=== PATIENT | male | born 1935 | race Caucasian/White ===

== ENCOUNTER 2021-02-27 09:40 | Inpatient (IN) | payer OTHER ==
[2021-02-27 10:43] LABS: Absolute Lymphocytes (CBC) 0.5 K/uL (0.7-4.9); Basophils % 0.1 % (0-1.3); Hematocrit 52.7 % (39.6-49.0); Lymphocytes % 2.9 % (15.3-44.8); MPV 8.8 fL (7.6-11.3); RBC Red Blood Cell Count 5.72 M/uL (4.33-5.43)
[2021-02-27 10:44] LABS: Protime INR 1.14
[2021-02-27 11:14] LABS: ALT/SGPT 17 U/L (12-78); AST/SGOT 18 U/L (15-37); Albumin 3.7 g/dL (3.4-5.0); Alkaline Phosphatase 81 U/L (45-117); Amylase 32 U/L (25-115); BUN Blood Urea Nitrogen 16 mg/dL (7-18); Bicarbonate 23 mmol/L (21-32); Bilirubin Direct 0.2 mg/dL (0-0.2); Bilirubin Total 1.2 mg/dL (0.2-1.0); CKMB Creatine Kinase MB < 1.0 ng/mL (1.0-3.6); Creatine Phosphokinase 53 U/L (39-308); Glucose Level 205 mg/dL (74-106); Lipase 45 U/L (73-393); Protein, Total 8.7 g/dL (6.4-8.2); Sodium Level 133 mmol/L (136-145); Troponin (Emerg Dept Use Only) < 0.02 ng/mL (0.0-0.045)
[2021-02-27] MEDS ORDERED: NA CHLORIDE 0.9% 500 ML ONE (11:28)
[2021-02-27] MEDS ORDERED: CEFTRIAXONE/SWI 1gm 1 GM/10 ML SYR ONE (11:56)
[2021-02-27] MEDS ORDERED: NA CHLORIDE 0.9% 100 ML ONE (11:56)
[2021-02-27 12:04] LABS: Blood Morphology Comment NOT SEEN (NOT SEEN); Platelet Estimate ADEQ; White Blood Cell Scan OK (OK)
--- NOTE | 2021-02-27 12:12 | RAD REPORT ---
EXAM DESCRIPTION: RAD - Chest Single View - 02/27/2021 10:59 am CLINICAL HISTORY: Weakness COMPARISON: Two view chest August 2011 TECHNIQUE: AP portable chest image was obtained 02/27/2021 10:59 am . FINDINGS: Fibrotic lung changes are present. No peripheral mass or consolidation confirmed. Calcifie d pleural plaques or small calcified parenchymal nodules seen. No failure or volume overload. Heart a nd vasculature are normal. No measurable pleural effusion and no pneumothorax. No acute bony abnormal ity seen. No acute aortic findings suspected. IMPRESSION: Chronic interstitial lung disease with fibrotic pattern progressive from 2011 No acute finding confirmed.
[2021-02-27 12:36] LABS: Urine Blood 3+ (Negative); Urine Glucose Negative (Negative); Urine Protein 3+ (Negative); Urine Specific Gravity 1.025 (1.005-1.030); Urine pH 5.5 (5.0-7.0)
[2021-02-27 13:19] LABS: Urine Bacteria 20-50 /HPF (NONE SEEN)
[2021-02-27 13:20] LABS: Urine Amorphous Sediment 2+ /HPF (NONE SEEN)
--- NOTE | 2021-02-27 13:32 | RAD REPORT ---
EXAM DESCRIPTION: CT - Chest For Pe Angio - 02/27/2021 1:14 pm CLINICAL HISTORY: COUGH COMPARISON: CT ABD PELVIS W CONTRAST dated 11/13/2009 TECHNIQUE: Dynamically enhanced 3 mm thick images of the chest were obtained during administration o f approximately 150mL Isovue 370 IV contrast. Coronal and oblique MIP reconstruction images were gene rated and reviewed. Exam utilizes a protocol to evaluate the pulmonary arterial tree. All CT scans are performed using dose optimization technique as appropriate and may include automated exposure control or mA/KV adjustment according to patient size. FINDINGS: No pulmonary emboli are identified. The aorta as imaged shows no acute or suspicious finding. No pericardial thickening or effusion. Prominent emphysema changes are present in the lung pena is a baseline. Patient has calcified pleur al plaquing. Focal consolidation is present in the posterior gutter on the left. No cavitation or und erlying mass. A few air bronchograms are present. Associated bronchi show wall thickening. Trace amou nt of airspace opacification seen in the superior segment left lower lobe. No pleural effusion or ple ural thickening. In the right lower lobe abutting the lateral pleura there is a 3.4 x 1.1 centimeter area of pleural t hickening and spiculated subpleural parenchyma. Review of the 2010 study shows this process to be pre sent but smaller in size. In all likelihood, this is progressive fibrotic process. Malignancy would b e expected have progressed substantially more over an 11 year interval. Small nonspecific mediastinal and hilar reactive type lymph nodes are present. No new bulky lymphaden opathy. No chest wall masses or abnormal axillary lymphadenopathy. IMPRESSION: No pulmonary emboli identified. Posterior gutter left lower lobe moderate-sized pneumonia.This pattern is more typically associated w ith bacterial pneumonia rather than COVID-19 or other viral process. The 3.4 x 1.1 cm sessile and spiculated soft tissue mass abutting the pleura in the lateral right low er lobe was present but has enlarged since 2010. Focal scarring would be favored given the relatively small interval exchange mechanic a decade of time. Ongoing monitoring can be used for surveillance of this finding. Underlying prominent emphysema.
[2021-02-27] MEDS ORDERED: ACETAMINOPHEN 500 MG TAB PO PRN (13:58)
[2021-02-27] MEDS ORDERED: ONDANSETRON 4 MG/2 ML VIAL IV PRN (13:58)
--- NOTE | 2021-02-27 14:04 | ER ---
Nurse's Notes [facility] Name: Jose Hudson Sr Age: 85 yrs Sex: Male : 1935 Arrival Date: 02/27/2021 Time: 09:43 Bed 19 Private MD: Pina Stevenson F Diagnosis: Other pneumonia, unspecified organism;Cystitis, unspecified with hematuria;Facial weakness Presentation: 02/27 09:46 Chief complaint: Pt's daughter report generalized weakness and AMS that began aa5 yesterday. Pt's daughter states "he is incoherent and he urinated on himself and he is so weak that he needs a lot of support just to get up". Pt currently A\\T\\O x 4. Coronavirus screen: fatigue. Ebola Screen: Patient negative for fever greater than or equal to 101.5 degrees Fahrenheit, and additional compatible Ebola Virus Disease symptoms. Onset of symptoms was February 2021. 09:46 Method Of Arrival: Wheelchair aa5 09:46 Initial Sepsis Screen: Does the patient meet any 2 criteria? HR > 90 bpm. Does the aa5 patient have a suspected source of infection? No. Patient's initial sepsis screen is negative. Risk Assessment: Do you want to hurt yourself or someone else? Patient reports no desire to harm self or others. 09:46 Acuity: RON 2 aa5 Triage Assessment: 09:50 General: Appears in no apparent distress. comfortable, Behavior is calm, cooperative, bp appropriate for age. Pain: Denies pain. EENT: No deficits noted. Neuro: Level of Consciousness is awake, alert, obeys commands, Oriented to Appropriate for age Reports weakness generalized. Cardiovascular: No deficits noted. Respiratory: No deficits noted. GI: No signs and/or symptoms were reported involving the gastrointestinal system. : No signs and/or symptoms were reported regarding the genitourinary system. Derm: No deficits noted. Musculoskeletal: No deficits noted. Historical: - Allergies: 09:49 Demerol (hallucinations); aa5 - Home Meds: 09:49 None [Active]; aa5 - PMHx: 09:49 None; aa5 - Immunization history:: Client reports receiving the 1st dose of the Covid vaccine. - Social history:: Smoking status: Patient reports the use of cigarette tobacco products, smokes one pack cigarettes per day. Screenin:50 Abuse screen: Denies threats or abuse. Denies injuries from another. Nutritional bp screening: No deficits noted. Tuberculosis screening: No symptoms or risk factors identified. Fall Risk None identified. Assessment: 09:50 General: SEE TRIAGE NOTE. bp 10:52 Reassessment: No changes from previously documented assessment. Patient and/or family bp updated on plan of care and expected duration. Pain level reassessed. CXR COMPLETED. UOP PENDING. 12:38 Reassessment: No changes from previously documented assessment. Patient and/or family bp updated on plan of care and expected duration. Pain level reassessed. PT STRAIGHT CATH FOR UOP, TOLERATED WELL. CT CHEST PENDING. 13:22 Reassessment: No changes from previously documented assessment. Patient and/or family bp updated on plan of care and expected duration. Pain level reassessed. PT RETURNED FROM CT. 15:40 Reassessment: No changes from previously documented assessment. Patient and/or family bp updated on plan of care and expected duration. Pain level reassessed. ADMIT INITIATED FOR PNEUMONIA AND CYSTITIS. Vital Signs: 09:46 BP 93 / 60; Pulse 107; Resp 18 S; Temp 98.6(O); Pulse Ox 87% on R/A; Weight 77.11 kg aa5 (R); Height 5 ft. 10 in. (177.80 cm) (R); 09:52 Pulse Ox 2 lpm NC; aa5 10:49 BP 108 / 67; Pulse 92; Resp 26; Temp 100.1; Pulse Ox 94% ; bp 11:51 BP 100 / 65; Pulse 81; Resp 23; Pulse Ox 98% ; bp 12:38 BP 127 / 67; Pulse 93; Resp 20; Pulse Ox 94% ; bp 13:23 BP 145 / 66; Pulse 105; Resp 20; Pulse Ox 100% ; bp 14:30 BP 149 / 94; Pulse 97; Resp 25; Pulse Ox 95% ; bp 15:30 BP 138 / 84; Pulse 100; Resp 22; Pulse Ox 95% ; bp 09:46 Body Mass Index 24.39 (77.11 kg, 177.80 cm) aa5 ED Course: 09:43 Patient arrived in ED. as 09:43 Pina Stevenson MD is Private Physician. as 09:45 Steven Tavarez MD is Attending Physician. kdr 09:46 Arm band placed on. aa5 09:48 Triage completed. aa5 09:50 Patient has correct armband on for positive identification. Bed in low position. Call bp light in reach. Side rails up X2. Adult w/ patient. 09:57 Ted Killian, RN is Primary Nurse. bp 10:20 Initial lab(s) drawn, by la, sent to lab. Inserted saline lock: 20 gauge in right kj1 antecubital area, using aseptic technique. Blood collected. 10:23 Inserted saline lock: 20 gauge in right antecubital area, using aseptic technique. bp Blood collected. 10:30 EKG done, by calibration laboratory technician. reviewed by Steven Tavarez MD. kj1 10:44 COVID-19 : Document "Date of Symptom Onset" if Symptomatic. Sent. bp 10:59 Chest Single View XRAY In Process Unspecified. EDMS 12:30 Straight cath inserted, using sterile technique, 16 Fr. Specimen obtained. bp 13:13 CT Chest For PE Angio In Process Unspecified. EDMS 14:03 Pina Stevenson MD is Hospitalizing Provider. kdr 19:03 No provider procedures requiring assistance completed. Patient admitted, IV remains in bp place. Administered Medications: 10:45 Drug: NS 0.9% 500 ml Route: IV; Rate: bolus; Site: right antecubital; bp 19:03 Follow up: IV Status: Completed infusion; IV Intake: 500ml bp 11:30 Drug: Rocephin - (cefTRIAXone) 1 grams Route: IVPB; Infused Over: 30 mins; Site: right bp antecubital; 19:03 Follow up: IV Status: Completed infusion; IV Intake: 50ml bp Intake: 19:03 IV: 50ml; Total: 50ml. bp 19:03 IV: 500ml; Total: 550ml. bp Outcome: 14:04 Decision to Hospitalize by Provider. kdr 14:30 Admitted to ER Hold. [facility]. bp 14:30 Condition: stable 14:30 Instructed on the need for admit. 20:25 Patient left the ED. kc4 Signatures: Dispatcher [employer] EDMS Steven Tavarez MD MD kdr Haily Donnelly Audri, RN RN [facility] Ted Killian, ROSENDO RN bp John Winndis kj1 Montserrat Whaley kc4 Corrections: (The following items were deleted from the chart) 09:52 09:46 Chief complaint: Pt's daughter report generalized weakness and AMS that began aa5 yesterday. Pt's daughter states "he is incoherent and he urinated on himself and he is so weak that he needs a lot of support just to get up". aa5 09:53 09:46 BP 93 / 60; Pulse 107bpm; Resp 18bpm; Spontaneous; Pulse Ox 87% RA; 77.11 kg aa5 Reported; Height 5 ft. 10 in. Reported; BMI: 24.3; aa5 09:57 09:46 Acuity: RON 3 aa5 aa5 09:58 09:46 Coronavirus screen: At this time, the client does not indicate any symptoms aa5 associated with coronavirus-19. aa5 10:36 10:36 EKG done, by calibration laboratory technician. reviewed by Steven Tavarez MD kj1 kj1 19:02 10:49 BP 108 / 67; Pulse 92bpm; Resp 26bpm; Pulse Ox 94%; bp bp
--- NOTE | 2021-02-27 14:05 | EDPHYS ---
Physician Documentation [facility] Name: Jose Hudson Sr Age: 85 yrs Sex: Male : 1935 Arrival Date: 02/27/2021 Time: 09:43 Bed 19 Private MD: Pina Stevenson F ED Physician Steven Tavarez HPI: 02/27 10:34 This 85 yrs old Male presents to ER via Wheelchair with complaints of kdr Weakness. 10:34 The patient presents to the emergency department with weakness of the entire body, kdr generalized weakness, Disorientation. Onset: The symptoms/episode began/occurred this morning, today. Context: occurred at home, occurred while the patient was at rest, The daughter states that last evening she believes the patient got out of his bed to go to the bathroom and may have urinated on the floor on the way. This morning he was unable to get out of bed without help. Normally the patient is able to care for himself make his own breakfast and take care of things and does not physically limited. Associated signs and symptoms: Pertinent positives: altered mental status, weakness, Possible incontinence. Severity of symptoms: At their worst the symptoms were moderate severe today, in the emergency department the symptoms have improved mildly. Patient's baseline: Neuro: alert and fully oriented, Motor: no deficits, Ambulation: walks without assistance, Speech: normal, normal for age. Current symptoms: Mild weakness. The patient has not experienced similar symptoms in the past. The patient has not recently seen a physician. Historical: - Allergies: 09:49 Demerol (hallucinations); aa5 - Home Meds: 09:49 None [Active]; aa5 - PMHx: 09:49 None; aa5 - Immunization history:: Client reports receiving the 1st dose of the Covid vaccine. - Social history:: Smoking status: Patient reports the use of cigarette tobacco products, smokes one pack cigarettes per day. ROS: 10:34 Constitutional: Negative for fever, chills, and weight loss, Eyes: Negative for injury, kdr pain, redness, and discharge, ENT: Negative for injury, pain, and discharge, Neck: Negative for injury, pain, and swelling, Cardiovascular: Negative for chest pain, palpitations, and edema, Respiratory: Negative for shortness of breath, cough, wheezing, and pleuritic chest pain, Abdomen/GI: Negative for abdominal pain, nausea, vomiting, diarrhea, and constipation, Back: Negative for injury and pain, : Negative for injury, bleeding, discharge, and swelling, MS/Extremity: Negative for injury and deformity, Skin: Negative for injury, rash, and discoloration, Psych: Negative for depression, anxiety, suicide ideation, homicidal ideation, and hallucinations, Allergy/Immunology: Negative for hives, rash, and allergies, Endocrine: Negative for neck swelling, polydipsia, polyuria, polyphagia, and marked weight changes, Hematologic/Lymphatic: Negative for swollen nodes, abnormal bleeding, and unusual bruising. 10:34 Neuro: Positive for altered mental status, weakness, Mild confusion. Exam: 10:34 Constitutional: This is a well developed, well nourished patient who is awake, alert, kdr and in no acute distress. Head/Face: Normocephalic, atraumatic. Eyes: Pupils equal round and reactive to light, extra-ocular motions intact. Lids and lashes normal. Conjunctiva and sclera are non-icteric and not injected. Cornea within normal limits. Periorbital areas with no swelling, redness, or edema. Neck: Trachea midline, no thyromegaly or masses palpated, and no cervical lymphadenopathy. Supple, full range of motion without nuchal rigidity, or vertebral point tenderness. No Meningismus. Chest/axilla: Normal chest wall appearance and motion. Nontender with no deformity. No lesions are appreciated. Cardiovascular: Regular rate and rhythm with a normal S1 and S2. No gallops, murmurs, or rubs. Normal PMI, no JVD. No pulse deficits. Respiratory: Lungs have equal breath sounds bilaterally, clear to auscultation and percussion. No rales, rhonchi or wheezes noted. No increased work of breathing, no retractions or nasal flaring. Abdomen/GI: Soft, non-tender, with normal bowel sounds. No distension or tympany. No guarding or rebound. No evidence of tenderness throughout. Back: No spinal tenderness. No costovertebral tenderness. Full range of motion. Skin: Warm, dry with normal turgor. Normal color with no rashes, no lesions, and no evidence of cellulitis. MS/ Extremity: Pulses equal, no cyanosis. Neurovascular intact. Full, normal range of motion. Neuro: Awake and alert, GCS 15, oriented to person, place, time, and situation. Cranial nerves II-XII grossly intact. Motor strength 5/5 in all extremities. Sensory grossly intact. Cerebellar exam normal. Psych: Awake, alert, with orientation to person, place and time. Behavior, mood, and affect are within normal limits. 10:34 ECG was reviewed by the Attending Physician. kdr Vital Signs: 09:46 BP 93 / 60; Pulse 107; Resp 18 S; Temp 98.6(O); Pulse Ox 87% on R/A; Weight 77.11 kg aa5 (R); Height 5 ft. 10 in. (177.80 cm) (R); 09:52 Pulse Ox 2 lpm NC; aa5 10:49 BP 108 / 67; Pulse 92; Resp 26; Temp 100.1; Pulse Ox 94% ; bp 11:51 BP 100 / 65; Pulse 81; Resp 23; Pulse Ox 98% ; bp 12:38 BP 127 / 67; Pulse 93; Resp 20; Pulse Ox 94% ; bp 13:23 BP 145 / 66; Pulse 105; Resp 20; Pulse Ox 100% ; bp 14:30 BP 149 / 94; Pulse 97; Resp 25; Pulse Ox 95% ; bp 15:30 BP 138 / 84; Pulse 100; Resp 22; Pulse Ox 95% ; bp 09:46 Body Mass Index 24.39 (77.11 kg, 177.80 cm) aa5 MDM: 10:34 Data reviewed: vital signs, nurses notes, lab test result(s), EKG, radiologic studies. kdr 14:04 Patient medically screened. kdr 02/27 10:05 Order name: Amylase, Serum kdr 02/27 10:05 Order name: Basic Metabolic Panel; Complete Time: 11:16 kdr 02/27 10:05 Order name: Blood Culture Adult (2) kdr 02/27 10:05 Order name: CBC with Diff; Complete Time: 12:20 kdr 02/27 10:05 Order name: CPK; Complete Time: 11:16 kdr 02/27 10:05 Order name: Ckmb; Complete Time: 11:16 kdr 02/27 10:05 Order name: LFT's; Complete Time: 11:16 kdr 02/27 10:05 Order name: Lactate; Complete Time: 11:16 kdr 02/27 10:05 Order name: Lipase; Complete Time: 11:16 [facility] 02/27 10:05 Order name: Procalcitonin; Complete Time: 12:20 [facility] 02/27 10:05 Order name: Protime (+inr); Complete Time: 11:16 [facility] 02/27 10:05 Order name: Ptt, Activated; Complete Time: 11:16 [facility] 02/27 10:05 Order name: Troponin (emerg Dept Use Only); Complete Time: 11:16 [facility] 02/27 10:05 Order name: Urine Microscopic Only; Complete Time: 13:51 [facility] 02/27 10:06 Order name: Amylase; Complete Time: 11:16 [facility] 02/27 10:32 Order name: Glucose, Ancillary Testing; Complete Time: 10:34 [facility] 02/27 10:33 Order name: COVID-19 : Document "Date of Symptom Onset" if Symptomatic. [facility] 02/27 11:49 Order name: D-Dimer [facility] 02/27 11:50 Order name: D-Dimer; Complete Time: 12:20 [facility] 02/27 12:00 Order name: SARS-COV-2 RT PCR; Complete Time: 12:20 [facility] 02/27 12:04 Order name: CBC Smear Scan; Complete Time: 12:20 [facility] 02/27 12:36 Order name: Urine Dipstick-Ancillary; Complete Time: 12:45 [facility] 02/27 13:21 Order name: Urine Culture [facility] 02/27 14:02 Order name: Basic Metabolic Panel [facility] 02/27 14:02 Order name: Basic Metabolic Panel [facility] 02/27 14:02 Order name: Troponin I [facility] 02/27 14:02 Order name: Troponin I [facility] 02/27 14:02 Order name: Troponin I [facility] 02/27 10:05 Order name: Chest Single View XRAY; Complete Time: 12:20 [facility] 02/27 10:05 Order name: Accucheck; Complete Time: 10:26 [facility] 02/27 10:05 Order name: Cardiac monitoring; Complete Time: 10:37 [facility] 02/27 10:05 Order name: EKG - Nurse/Tech; Complete Time: 10:37 [facility] 02/27 10:05 Order name: IV Saline Lock - Large Bore; Complete Time: 10:26 [facility] 02/27 10:05 Order name: Labs collected and sent; Complete Time: 10:27 [facility] 02/27 10:05 Order name: O2 Per Protocol; Complete Time: 10:08 kdr 02/27 10:05 Order name: O2 Sat Monitoring; Complete Time: 10: kdr 02/27 10:05 Order name: Urine Dipstick-Ancillary (obtain specimen); Complete Time: 12:37 kdr 02/27 12:20 Order name: CT Chest For PE Angio; Complete Time: 13:51 kdr 02/27 14:02 Order name: Regular EDMS EC:34 Rate is 97 beats/min. Rhythm is regular, Sinus Rhythm with No ectopy. QRS Walker is kdr Normal. RI interval is normal. QRS interval is normal. Clinical impression: NSR w/ Non-specific ST/T Changes. Administered Medications: 10:45 Drug: NS 0.9% 500 ml Route: IV; Rate: bolus; Site: right antecubital; bp 19:03 Follow up: IV Status: Completed infusion; IV Intake: 500ml bp 11:30 Drug: Rocephin - (cefTRIAXone) 1 grams Route: IVPB; Infused Over: 30 mins; Site: right bp antecubital; 19:03 Follow up: IV Status: Completed infusion; IV Intake: 50ml bp Disposition Summary: 02/27/21 14:04 Hospitalization Ordered Hospitalization Status: Inpatient Admission kdr Provider: Pina Stevenson kdr Condition: Fair kdr Problem: new kdr Symptoms: have improved kdr Bed/Room Type: Standard kdr Location: Telemetry/MedSurg (Inpatient)(02/27/21 18:55) tt3 Room Assignment: [facility](02/27/21 18:55) tt3 Diagnosis - Other pneumonia, unspecified organism kdr - Cystitis, unspecified with hematuria kdr - Facial weakness kdr Forms: - Medication Reconciliation Form kdr - SBAR form kdr Signatures: Dispatcher [employer] EDMS Steven Tavarez MD MD kdr Luly Conklin RN RN aa5 Ted Killian RN RN bp Sam Ac tt3 Corrections: (The following items were deleted from the chart) 10:34 10:34 CORONAVIRUS+LAB.PAWELZ ordered. EDMS EDMS 11:08 10:33 CORONAVIRUS ordered. EDMS EDMS 18:20 14:04 Telemetry/MedSurg (Inpatient) kdr bp 18:20 14:04 kdr bp 18:55 18:20 [facility] ER HOLD bp tt3 18:55 18:20 ERHOLD- bp tt3
[2021-02-27] MEDS ORDERED: IPRATROPIUM BROM 0.5MG/2.5ML NEB PRN (16:00)
[2021-02-27] MEDS ORDERED: ALBUTEROL 2.5 MG/3 ML NEB SOL NEB PRN (16:00)
[2021-02-27 20:31] VITALS: BMI 22.7
[2021-02-27] MEDS: CEFTRIAXONE/SWI 1gm 1 GM/10 ML SYR IVP SCH (21:48)
[2021-02-28 06:06] LABS: Absolute Lymphocytes (CBC) 1.8 K/uL (0.7-4.9); Basophils % 0.1 % (0-1.3); Hematocrit 47.3 % (39.6-49.0); Lymphocytes % 9.1 % (15.3-44.8); MPV 9.8 fL (7.6-11.3); RBC Red Blood Cell Count 5.16 M/uL (4.33-5.43)
[2021-02-28 06:22] LABS: Potassium 3.8 mmol/L (3.5-5.1)
[2021-02-28] MEDS: CEFTRIAXONE/SWI 1gm 1 GM/10 ML SYR IVP SCH ×2 (08:09→20:57)
--- NOTE | 2021-02-28 08:14 | RAD REPORT ---
EXAM DESCRIPTION: [place] Single View02/28/2021 6:24 am CLINICAL HISTORY: Chest pain COMPARISON: February 27 FINDINGS: Bibasilar lung opacities are unchanged. The heart is normal size IMPRESSION: Bibasilar lung opacities unchanged presumably pneumonia
[2021-02-28] MEDS: AZITHROMYCIN IV 250 MG in NA CHLORIDE 0.9% 250 ML IVPB SCH (09:26)
[2021-02-28] MEDS ORDERED: GLUCAGON 1 MG/VIAL IM PRN (11:04)
[2021-02-28] MEDS ORDERED: D50W 25 GM/50 ML SYRINGE IV PRN (11:04)
[2021-02-28] MEDS: INSULIN -REGULAR HUMAN 50 UNIT/0.5 ML ML SQ SCH ×3 (11:30→20:57)
--- NOTE | 2021-02-28 13:46 | HP ---
Date of Admission: 02/27/2021 History Of Present Illness: An 85-year-old male with history of type 2 diabetes. I have not seen th is patient for the past 2 years. He eventually stopped following up and stopped taking his medicatio ns for diabetes or high blood pressure. He said his blood sugar was fine and his blood pressure was fine, but he did not give specific numbers. He was doing well until 2 days ago when he started feeli ng weak and tired, and he had difficulty in concentrating, so he came to the emergency room. He was found to have bibasilar pneumonia and cystitis with hematuria, and he was admitted for both. The pat ient had mild increased shortness of breath, but no chest pain and voiced no other complaints. Review of Systems: Respiratory: As above. Cardiovascular: No complaints. Genitourinary: No complaints. Skeletomuscular: No complaint. Neurological: As above. Generalized fatigue. Gastrointestinal: No complaints. Past Medical History: 1.Type 2 diabetes. 2.Hypertension. 3.Hyperlipidemia. 4.COPD. Social History: Smokes 1 pack per day for many years. No alcohol or drug abuse history. Family History: Noncontributing. Medications: The patient as mentioned is taking no medicines. Allergies: MEPERIDINE. Physical Examination: Vital Signs: Blood pressure 110/70, pulse 76, temperature 97.4. Heart: Regular rate and rhythm. Chest: Bibasilar crackles. Abdomen: Soft, benign. Bowel sounds are active. Extremities: No edema. No cyanosis. Peripheral pulses are felt. Neurological: Alert, oriented x4. Grossly intact. Laboratory Data: Chest x-ray showed bibasilar infiltrates consistent with bibasilar pneumonia. COVI D test was negative. Chest CT showed no PE and had right lower lobe scar evident since 2009. No sig nificant change. White cell count 19.5, hemoglobin 16.1, hematocrit 47.3, and platelets 107. Sodium 135, potassium 3.8, BUN 23, creatinine 1.21. Glucose on admission was 209 with . The pat ient's BNP 2379. Cardiac enzymes negative. Procalcitonin 0.32. Urinalysis showed 3+ blood with 10- 20 rbc's and 10-20 white cells and protein is 3. Assessment And Plan: 1.Bibasilar pneumonia in a patient with chronic obstructive pulmonary disease. The patient is being admitted and put on IV Zithromax and IV Rocephin. We will put him on beta-2 agonist breathing treat ments and IV steroids. 2.Cystitis with hematuria. Above antibiotics will take care of that thing. 3.History of the patient having diabetes and hypertension. We will monitor his vitals and we will c heck his A1c and we will monitor his blood sugar fingersticks. 4.Procalcitonin high and bacteremia with septicemia is considered, especially the patient gives some indication of having had initially at home difficulty in concentrating that could be explained by th at. Right now, he is as mentioned alert, oriented, and he is doing well. Has no symptoms from this. 5.The patient has a GFR of 57. I think he has chronic renal insufficiency. For his chronic medical problems, we will monitor that too. Look orders for details. MFS/MODL Voice ID: [id number]
[2021-02-28] MEDS: METHYLPREDNISOLONE 40 MG INJ IV SCH (16:54)
[2021-02-28] MEDS: ENOXAPARIN 40 MG/0.4 ML SQ SCH (16:54)
[2021-03-01] MEDS: METHYLPREDNISOLONE 40 MG INJ IV SCH ×3 (00:17→17:52)
[2021-03-01 04:43] LABS: Absolute Lymphocytes (CBC) 0.8 K/uL (0.7-4.9); Hematocrit 48.5 % (39.6-49.0); Lymphocytes % 6.3 % (15.3-44.8); MPV 10.1 fL (7.6-11.3); RBC Red Blood Cell Count 5.23 M/uL (4.33-5.43)
[2021-03-01 04:56] LABS: Potassium 4.2 mmol/L (3.5-5.1)
[2021-03-01] MEDS: AZITHROMYCIN IV 250 MG in NA CHLORIDE 0.9% 250 ML IVPB SCH (08:42)
[2021-03-01] MEDS: INSULIN -REGULAR HUMAN 50 UNIT/0.5 ML ML SQ SCH ×4 (08:43→21:00)
[2021-03-01] MEDS: CEFTRIAXONE/SWI 1gm 1 GM/10 ML SYR IVP SCH ×2 (08:43→21:00)
--- NOTE | 2021-03-01 11:22 | PN ---
Subjective: The patient is feeling well. No palpitation. No dizziness. Shortness of breath is bet ter. No cough. Objective: Vital Signs: Blood pressure 148/78, pulse 82, temperature 97. Heart: Regular rate and rhythm. Chest: Bilateral crackles. Abdomen: Soft, benign. Neurological: Alert, oriented x4. Grossly intact. Laboratory Data: Telemetry showed the patient yesterday had frequent PVCs with bigeminy; however, th e patient was not symptomatic. Urinalysis, no growth. Blood cultures, no growth to date. CBC; whit e cell count dropped down to 12.8, platelet count 113. The rest of his CBC is noted. Chemistry; BUN 23, creatinine 1.15, GFR 61, blood sugar fingersticks 234. Assessment And Plan: 1.Bibasilar pneumonia. The patient has improved clinically. 2.Arrhythmia with bigeminy. We will ask Cardiology opinion about that with the consult. 3.The patient's A1c was 6.3. The patient has not been taking medicines for some time. We will yaritza tor him and may put him on metformin and this could be done as an outpatient. The patient right now is on steroids. 4.Chronic renal insufficiency, improved GFR. 5.Cystitis. We will continue current antibiotics. Expect discharge in a.m. Look orders for detail s. ABBIE/MODL Voice ID: [id number] Report ID: [id number]
--- NOTE | 2021-03-01 15:13 | CON ---
Date of Consultation: 03/01/2021 Reason For Consultation: Bigeminy. History Of Present Illness: An 85-year-old male with history of type 2 diabetes, hypertension, dysli pidemia, and COPD. Two days ago started feeling weak, presented to the emergency room, found to have bilateral pneumonia along with UTI. Admitted and started on IV antibiotics. Found to have some big eminies on EKG and telemetry, hence Cardiology was consulted. The patient does not have any chest pa in or active shortness of breath. Past Medical History: As outlined above in HPI. Medications: Refer reconciliation sheet for detailed list. Allergies: MEPERIDINE. Family History: No premature coronary artery disease or cancer. Social History: Smokes 1 pack per day. Does not drink, use any drugs. Review of Systems: All systems reviewed were and they were negative except as mentioned in the HPI. Physical Examination: Vital Signs: Temperature is 97.1, pulse 75, breathing at 17, blood pressure 149/95, saturating 98%. General: Pleasant elderly male, in no apparent distress. Head and Neck: Pupils are equal, reactive to light. Intact eye movements. No JVD. No cervical lym phadenopathy. Neck is supple. Thyroid is not enlarged. Lungs: Rhonchi bilaterally. No accessory muscle use or muscle retraction. Heart: Irregular. No extra sounds. Abdomen: Soft, nontender. Bowel sounds positive. No organomegaly. No masses or hernia. No rigidi ty or rebound. Extremities: No clubbing, cyanosis. Intact pulses. Skin: No rash. Neurologic: Alert, awake, oriented x3. No acute focal deficits appreciated. Investigations: Creatinine 1.15, potassium is 4.2, magnesium is 1.8. Troponin 0.02 and 0.04. CTA c hest, no PE. Assessment And Recommendations: Premature ventricular contractions. Magnesium and potassium levels normal. Magnesium borderline now. We will recommend to give 2 g of magnesium IV and cardiac enzymes are negative. Please obtain echocardiogram and further recommendations upon the results of the echo . The patient currently is being treated for pneumonia and urinary tract infection. Once this infec tion status is cleared, I will recommend to do a Lexiscan and Nuclear stress test, which can be done as an outpatient. Thank you for the consult. /ANTHONY Voice ID: [id number] Report ID: [id number]
[2021-03-01] MEDS: ENOXAPARIN 40 MG/0.4 ML SQ SCH (17:52)
[2021-03-02] MEDS: METHYLPREDNISOLONE 40 MG INJ IV SCH ×2 (01:00→08:45)
[2021-03-02 06:16] LABS: Hematocrit 47.3 % (39.6-49.0); RBC Red Blood Cell Count 5.12 M/uL (4.33-5.43)
[2021-03-02 06:17] LABS: Absolute Lymphocytes (CBC) 1.1 K/uL (0.7-4.9); Basophils % 0.2 % (0-1.3); Lymphocytes % 7.4 % (15.3-44.8); MPV 9.4 fL (7.6-11.3)
[2021-03-02 06:32] LABS: Potassium 4.3 mmol/L (3.5-5.1)
[2021-03-02] MEDS: CEFTRIAXONE/SWI 1gm 1 GM/10 ML SYR IVP SCH (08:41)
[2021-03-02] MEDS: INSULIN -REGULAR HUMAN 50 UNIT/0.5 ML ML SQ SCH ×2 (08:42→11:30)
[2021-03-02] MEDS: AZITHROMYCIN IV 250 MG in NA CHLORIDE 0.9% 250 ML IVPB SCH (08:43)
[2021-03-02 13:28] VITALS: BP 136/63; TEMP 97.2
--- NOTE | 2021-03-02 13:52 | ECHO ---
HEIGHT: 5 ft 10 in WEIGHT: 158 lb 9.6 oz DATE OF STUDY: 03/02/[address]: Mickey Pineda MD 2-DIMENSIONAL: YES M.MODE: YES DOPPLER: YES COLOR FLOW: YES TDS: NO PORTABLE: NO DEFINITY: NO BUBBLE STUDY: NO DIAGNOSIS: PREMATURE VENTRICULAR COMPLEXES CARDIAC HISTORY: CATHERIZATION: NO SURGERY: NO PROSTHETIC VALVE: NO PACEMAKER: NO MEASUREMENTS (cm) DIASTOLIC (NORMALS) SYSTOLIC (NORMALS) IVSd 1.2 (0.6-1.2) LA Diam 3.5 (1.9-4.0) LVEF 66% LVIDd 4.7 (3.5-5.7) LVIDs 3.0 (2.0-3.5) %FS 36% LVPWd 1.2 (0.6-1.2) Ao Diam 2.7 (2.0-3.7) 2 DIMENSIONAL ASSESSMENT: RIGHT ATRIUM: NORMAL LEFT ATRIUM: NORMAL RIGHT VENTRICLE: NORMAL LEFT VENTRICLE: NORMAL TRICUSPID VALVE: NORMAL MITRAL VALVE: NORMAL PULMONIC VALVE: NORMAL AORTIC VALVE: NORMAL PERICARDIAL EFFUSION: NONE AORTIC ROOT: NORMAL LEFT VENTRICULAR WALL MOTION: NORMAL DOPPLER/COLOR FLOW: NORMAL COMMENTS: NORMAL 2D ECHOCARDIOGRAM WITH DOPPLER. NO WALL MOTION ABNORMALITY. NO EFFUSION. TECHNOLOGIST: Talia ALMENDAREZ
[2021-03-02 17:46] VITALS: O2SAT 95
--- NOTE | 2021-03-03 13:04 | DS ---
Date of Discharge: 03/02/2021 History Of Present Illness: The patient is an 85-year-old male, who was admitted to the hospital bec ause of bibasilar pneumonia along with cystitis when he presented to the emergency room with a compla int of feeling weak and felt short of breath. Past Medical History: As per admit note. Social History: As per admit note. Family History: As per admit note. Medications: As per admit note. Allergies: PER ADMIT NOTE. Physical Examination: As per admit note. Diagnostic Data: As per his admit note. Hospital Course: The patient was admitted to the hospital. He was put on IV Rocephin, IV Zithromax, oxygen protocol. We checked his A1c. It was 5.3 and the patient was not taking any medication for diabetes for some time and also he was not taking any medications for his high blood pressure for franklin e time. His blood pressure also was well controlled. The patient had chronic renal insufficiency, w hich has improved from 57, GFR to 64, and he was doing well. While in the hospital recovering, the p atient had arrhythmia in the form of PVCs and bigeminy; however, he was not symptomatic. Cardiology has seen the patient. A cardiac echo done showed normal with an ejection fraction of 66%. They kerry mmended an outpatient stress Lexiscan test. The patient is doing well and has no problems. Througho ut the discharge, the patient on oral antibiotics, Augmentin, and Zithromax. As far as the patient n eeding albuterol and breathing treatments, his saturation on room air at rest and with activity today is 94% and 96%. At this time, we will monitor him as outpatient. We may prescribe dose as an outpa tient for him. He was put while in the hospital on a nebulizer for those medicines the pa tient as an outpatient and we will ask him to also follow up with Cardiology. Look discharge orders for details. MFS/MODL Voice ID: [id number] Report ID: [id number]
--- NOTE | 2021-03-03 16:34 | PN ---
Date of Progress Note: 03/02/2021 Mr. Hudson basically is 85, was admitted with pneumonia by Dr. Stevenson without bigeminy. He was seen by Dr. Lozada for an echo on him. His magnesium and potassium had been corrected and normal. He has a history of diabetes, hypertension, dyslipidemia, and COPD. No cardiac symptoms reported. He is a symptomatic with bigeminy. Echocardiogram which was ordered for the bigeminy showed normal ejection fraction, no wall motion abnormalities, some mild aortic sclerosis, no effusion. No need to treat hi s bigeminy. Continue present regimen. Can be discharged whenever it is okay with Dr. Stevenson. MELLY/ANTHONY Voice ID: [id number] Report ID: [id number]
== END 2021-03-02 16:50 | disposition home or self-care (01) | DRG 689 ==
LOC: ER 09:40 → ERHOLD 14:01 → 2ND 19:14
PROVIDERS: ADMIT Internal Medicine; ATTEND Internal Medicine
DX: N30.91 Cystitis, unspecified with hematuria (principal); J18.9 Pneumonia, unspecified organism; J44.0 Chronic obstructive pulmonary disease with (acute) lower respiratory infection; E78.5 Hyperlipidemia, unspecified; I49.3 Ventricular premature depolarization; I12.9 Hypertensive chronic kidney disease with stage 1 through stage 4 chronic kidney disease, or unspecified chronic kidney disease; E11.22 Type 2 diabetes mellitus with diabetic chronic kidney disease; N18.9 Chronic kidney disease, unspecified; R00.8 Other abnormalities of heart beat; F17.210 Nicotine dependence, cigarettes, uncomplicated; Z20.822 Contact with and (suspected) exposure to COVID-19
CPT/HCPCS: 36415; 51702; 71045; 71275; 80048; 80076; 81003; 81015; 82150; 82550; 82553; 82947; 83036; 83605; 83690; 83735; 83880; 84145; 84484; 85025; 85379; 85610; 85730; 87040; 87086; 87088; 93005; 93306; 94760; 96361; 96365; 96366; 97161; 99285; J0456; J0696; J1650; J2920; J7040; J7050; Q9967; U0003

== ENCOUNTER 2023-02-19 16:15 | Inpatient (IN) | payer OTHER ==
[2023-02-19] MEDS ORDERED: HYDROCODONE/APAP 7.5/325 MG TAB ONE (17:02)
--- NOTE | 2023-02-19 18:34 | RAD REPORT ---
EXAM DESCRIPTION: RAD - Femur Right - 02/19/2023 5:19 pm CLINICAL HISTORY: PAIN COMPARISON: No comparisons TECHNIQUE: Right femur, 2 views. FINDINGS: Mildly buckled fracture at the femoral head/ neck junction. Mild hip joint degenerative ch anges. Well corticated osseous fragment at the ischial tuberosity is probably chronic, may relate to sequelae of enthesopathy the hamstring origins. There is no dislocation or periosteal reaction noted. Vascular calcifications. IMPRESSION: Mildly buckled fracture at the femoral head/neck junction.
[2023-02-19] MEDS ORDERED: MORPHINE 4 MG/ML SYR ONE (19:23)
[2023-02-19] MEDS ORDERED: ONDANSETRON 4 MG (ODT) TAB ONE (19:23)
--- NOTE | 2023-02-19 19:40 | RAD REPORT ---
EXAM DESCRIPTION: CT - Pelvis Wo Cont - 02/19/2023 6:57 pm CLINICAL HISTORY: right femur fracture COMPARISON: Femur Right dated 02/19/2023 TECHNIQUE: Thin cut axial CT imaging of the pelvis was performed without IV contrast. Multiplanar re formats were generated and reviewed. All CT scans are performed using dose optimization technique as appropriate and may include automated exposure control or mA/KV adjustment according to patient size. FINDINGS: Mildly comminuted fracture of the right femoral head/neck junction with buckling across th e posterior cortex. Small linear fracture fragment along the posterior margin of the acetabulum on th e right. Periarticular soft tissue swelling and small joint effusion. Evaluation of the pelvic structures reveals prostatomegaly and a calcified ovoid 1.3 cm lesion adjace nt to the rectal adventitia on the left, which may represent a small omental or extra mental fat infa rct. 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 Crescentic hypodensity along the margins of the aneurysm sac most prominent anteriorly, could relate to presence of mural thrombus of indeterminate age or sequelae of dissection, probably chronic. No dilated bowel loops or visualized bowel wall thickening. No free air, free fluid or inflammatory s tranding. No hernia, mass or bulky lymphadenopathy. The urinary bladder is without significant findin g. Multilevel degenerative changes of the lower lumbar spine IMPRESSION: Mildly comminuted and buckled right femoral head/neck junction fracture. Small fracture fragment along the posterior margin of the acetabulum on the right. 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 Crescentic hypodensity along the margins of the aneurysm sac could relate to a mural thrombus of ind eterminate age or sequelae of dissection, probably chronic. Evaluation is limited on this noncontrast exam.
--- NOTE | 2023-02-19 20:08 | ER ---
Nurse's Notes [facility] Name: Jose Hudson Sr Age: 87 yrs Sex: Male : 1935 Arrival Date: 02/19/2023 Time: 16:15 Bed 13 Private MD: Diagnosis: mildly comminuted and buckled right femoral head/neck junction fracture Presentation: 02/19 16:21 Chief complaint: Patient states: Fall, legs gave out. CO right hip/groin pain. Does not nj1 take blood thinners. 16:21 Method Of Arrival: Wheelchair [facility] 16:21 Coronavirus screen: Vaccine status: Patient reports receiving the 2nd dose of the covid nj1 vaccine. Ebola Screen: Patient denies travel to an Ebola-affected area in the 21 days before illness onset. Initial Sepsis Screen: Does the patient meet any 2 criteria? No. Patient's initial sepsis screen is negative. Does the patient have a suspected source of infection? No. Patient's initial sepsis screen is negative. Risk Assessment: Do you want to hurt yourself or someone else? Patient reports no desire to harm self or others. Onset of symptoms was February 19, 2023. 16:21 Acuity: RON 3 nj1 Historical: - Allergies: 16:21 Demerol (hallucinations); nj1 - PMHx: 16:21 Hypertensive disorder; nj1 - Immunization history:: Client reports receiving the 2nd dose of the Covid vaccine. - Social history:: Smoking status: Patient reports the use of cigarette tobacco products, smokes two packs cigarettes per day. Screenin:54 [facility] ED Fall Risk Assessment (Adult) History of falling in the last 3 months, kc6 including since admission Yes- single mechanical fall (1 pt) Confusion or Disorientation No (0 pts) Intoxicated or Sedated No (0 pts) Impaired Gait No (0 pts) Mobility Assist Device Used No (0 pt) Altered Elimination No (0 pt) Score/Fall Risk Level 0 - 2 = Low Risk. Abuse screen: Denies threats or abuse. Denies injuries from another. Nutritional screening: No deficits noted. Tuberculosis screening: No symptoms or risk factors identified. Assessment: 16:54 General: Appears in no apparent distress. comfortable, Behavior is calm, cooperative, kc6 appropriate for age. Pain: Complains of pain in right hip. Neuro: Level of Consciousness is awake, alert, obeys commands, Oriented to person, place, time, situation, Appropriate for age. Cardiovascular: Capillary refill < 3 seconds. Respiratory: Airway is patent Trachea midline Respiratory effort is even, unlabored, Respiratory pattern is regular, symmetrical. GI: No signs and/or symptoms were reported involving the gastrointestinal system. : No signs and/or symptoms were reported regarding the genitourinary system. EENT: No signs and/or symptoms were reported regarding the EENT system. Derm: No signs and/or symptoms reported regarding the dermatologic system. Skin is intact, is healthy with good turgor, Skin is pink, warm \T\ dry. Musculoskeletal: No signs and/or symptoms reported regarding the musculoskeletal system. Circulation, motion, and sensation intact. Capillary refill < 3 seconds, Range of motion: intact in all extremities. 17:54 Reassessment: Patient appears in no apparent distress at this time. No changes from kc6 previously documented assessment. Patient and/or family updated on plan of care and expected duration. Pain level reassessed. Patient is alert, oriented x 3, equal unlabored respirations, skin warm/dry/pink. 18:54 Reassessment: Patient appears in no apparent distress at this time. No changes from kc6 previously documented assessment. Patient and/or family updated on plan of care and expected duration. Pain level reassessed. Patient is alert, oriented x 3, equal unlabored respirations, skin warm/dry/pink. 19:20 General: Appears in no apparent distress. comfortable, Behavior is calm, cooperative. lg3 Pain: Complains of pain in right leg and right hip. Neuro: No deficits noted. [place] Agitation-Sedation Scale (RASS): 0 - Alert and Calm Level of Consciousness is awake, alert, obeys commands, Oriented to person, place, time, situation. Cardiovascular: No deficits noted. Denies chest pain, shortness of breath, Capillary refill < 3 seconds Clubbing of nail beds is absent JVD is absent Patient's skin is warm and dry. Respiratory: No deficits noted. Airway is patent Trachea midline Respiratory effort is even, unlabored, Respiratory pattern is regular, symmetrical. GI: No deficits noted. No signs and/or symptoms were reported involving the gastrointestinal system. : No deficits noted. No signs and/or symptoms were reported regarding the genitourinary system. EENT: No deficits noted. No signs and/or symptoms were reported regarding the EENT system. Derm: No deficits noted. No signs and/or symptoms reported regarding the dermatologic system. Skin is intact, is healthy with good turgor, Skin is dry, Skin is normal, Skin temperature is warm. Musculoskeletal: Circulation, motion, and sensation intact. Capillary refill < 3 seconds, Range of motion: limited in right hip. 21:14 Reassessment: Patient appears in no apparent distress at this time. No changes from lg3 previously documented assessment. Patient and/or family updated on plan of care and expected duration. Pain level reassessed. Patient is alert, oriented x 3, equal unlabored respirations, skin warm/dry/pink. 21:26 General: attempted to call report. no answer from nurse. lg3 22:02 General: attempted to call report. no answer from nurse. lg3 22:03 General: son Florencio [phone]. lg3 22:41 Reassessment: Patient appears in no apparent distress at this time. No changes from as6 previously documented assessment. Patient and/or family updated on plan of care and expected duration. Pain level reassessed. Patient is alert, oriented x 3, equal unlabored respirations, skin warm/dry/pink. Patient states feeling better. Vital Signs: 16:21 BP 145 / 92; Pulse 84; Resp 18; Temp 97.9(O); Pulse Ox 95% on R/A; Weight 74.84 kg; nj1 Height 5 ft. 10 in. ; Pain 9/10; 17:58 BP 137 / 77; Pulse 68; Resp 16 S; Pulse Ox 95% on R/A; kc6 19:04 BP 145 / 87; Pulse 60; Resp 16 S; Pulse Ox 94% on R/A; kc6 21:14 BP 127 / 73; Pulse 72; Resp 17 S; Pulse Ox 95% on R/A; lg3 16:21 Body Mass Index 23.67 (74.84 kg, 177.8 cm) [facility] 16:21 Pain Scale: Adult [facility] ED Course: 16:17 Patient arrived in ED. rg4 16:17 Letitia Prado PA-C is [facility]. sb4 16:17 Min Coello MD is Attending Physician. sb4 16:23 Carr, Ladonna, RN is Primary Nurse. kc6 16:50 Triage completed. nj1 16:52 Arm band placed on. nj1 16:54 Patient has correct armband on for positive identification. Placed in gown. Bed in low kc6 position. Side rails up X2. Adult w/ patient. Client placed on continuous cardiac and pulse oximetry monitoring. NIBP monitoring applied. 17:20 Femur Right In Process Unspecified. EDMS 18:[address] In Process Unspecified. EDMS 19:00 Report given to ROSENDO Monet. kc6 19:20 Door closed. Noise minimized. Warm blanket given. Family accompanied patient. lg3 19:20 Patient maintains SpO2 saturation greater than 95% on room air. lg3 20:07 Kal Keller MD is Hospitalizing Provider. sb4 21:41 Inserted saline lock: 20 gauge in left antecubital area, using aseptic technique. lg3 22:41 No provider procedures requiring assistance completed. Patient admitted, IV remains in as6 place. intact, No redness/swelling at site. Administered Medications: 16:53 Drug: Hydrocodone-Acetaminophen PO (7.5 mg-325 mg) 1 tabs Route: PO; kc6 17:59 Follow up: Response: No adverse reaction; Pain is decreased; RASS: Alert and Calm (0) kc6 19:22 Drug: morphine IM 4 mg Route: IM; Site: right deltoid; lg3 21:16 Follow up: Response: No adverse reaction; Marked relief of symptoms lg3 19:22 Drug: Ondansetron PO 4 mg Route: PO; lg3 21:15 Follow up: Response: No adverse reaction lg3 Medication: 22:42 VIS not applicable for this client. as6 Outcome: 20:07 Decision to Hospitalize by Provider. sb4 22:41 Admitted to Med/surg accompanied by tech, via stretcher, Report called to Melisa as6 22:41 Condition: stable 22:41 Instructed on the need for admit, Demonstrated understanding of instructions. 22:42 Patient left the ED. as6 Signatures: Dispatcher [employer] Mariana Contreras rgTierney Oakley RN RN lg3 Julio C Brito RN RN as6 Ladonna Carr, ROSENDO RN debra6 Letitia Prado PA-C PA-C sb4 Desean, Madhavi, RN RN nj1
--- NOTE | 2023-02-19 20:08 | EDPHYS ---
Physician Documentation [facility] Name: Jose Hudson Sr Age: 87 yrs Sex: Male : 1935 Arrival Date: 02/19/2023 Time: 16:15 Bed 13 Private MD: ED Physician Min Coello HPI: 02/19 16:43 This 87 yrs old Male presents to ER via Unassigned with complaints of Fall Injury. sb4 16:43 The patient or guardian reports decreased range of motion, pain. that occurred [employer] sb4 parking lot, sustained from a fall, while walking, There is no obvious deformity, The patient is able to ambulate with assistance. The patient is able to bear partial body weight. There is no radiation of the patient's discomfort. The complaints affect the right hip. Onset: The symptoms/episode began/occurred just prior to arrival. Modifying factors: The symptoms are alleviated by remaining still, the symptoms are aggravated by any movement, weight bearing. Associated signs and symptoms: Loss of consciousness: the patient experienced no loss of consciousness, Pertinent positives: None. Pertinent negatives: dizziness. The patient has not experienced similar symptoms in the past. The patient has not recently seen a physician. Historical: - Allergies: 16:21 Demerol (hallucinations); nj1 - PMHx: 16:21 Hypertensive disorder; nj1 - Immunization history:: Client reports receiving the 2nd dose of the Covid vaccine. - Social history:: Smoking status: Patient reports the use of cigarette tobacco products, smokes two packs cigarettes per day. ROS: 16:48 Constitutional: Negative for fever, chills, and weight loss. sb4 16:48 MS/extremity: Positive for injury or acute deformity, decreased range of motion, pain, of the right hip. 16:48 All other systems are negative. Exam: 16:48 Constitutional: This is a well developed, well nourished patient who is awake, alert, sb4 and in no acute distress. 16:48 Musculoskeletal/extremity: ROM: limited active range of motion due to pain, limited passive range of motion due to pain, in the right leg, Circulation is intact in all extremities. Pulses: are normal with no appreciated deficits, Perfusion: the patient is normally perfused throughout, Perfusion: the extremity is normally perfused throughout, Sensation intact. Vital Signs: 16:21 BP 145 / 92; Pulse 84; Resp 18; Temp 97.9(O); Pulse Ox 95% on R/A; Weight 74.84 kg; nj1 Height 5 ft. 10 in. ; Pain 9/10; 17:58 BP 137 / 77; Pulse 68; Resp 16 S; Pulse Ox 95% on R/A; kc6 19:04 BP 145 / 87; Pulse 60; Resp 16 S; Pulse Ox 94% on R/A; kc6 21:14 BP 127 / 73; Pulse 72; Resp 17 S; Pulse Ox 95% on R/A; lg3 16:21 Body Mass Index 23.67 (74.84 kg, 177.8 cm) nj1 16:21 Pain Scale: Adult nj1 MDM: 16:23 Patient medically screened. sb4 16:48 Differential diagnosis: hip fracture, intertrochanteric fracture, femoral neck sb4 fracture, femoral shaft fracture, strain. 20:06 Data reviewed: vital signs, nurses notes, radiologic studies, and as a result, I will sb4 admit patient. Consideration of Admission/Observation Patient was admitted/placed on observation. Management of patient was discussed with the following: Hospitalist: Mel ARAGON. Instrument Technician: Ortho Dr. Bowman, agrees to consult, will operate. Cardiology- Dr. Lozada also cleared . Care significantly affected by the following chronic conditions: Hypertension. Counseling: I had a detailed discussion with the patient and/or guardian regarding the historical points, exam findings, and any diagnostic results supporting the discharge/admit diagnosis, the presence of at least one elevated blood pressure reading (>120/80) during this emergency department visit, radiology results, the need for further work-up and treatment in the hospital. 02/19 20:22 Order name: Urinalysis w/ reflexes EDMS 02/19 20:25 Order name: Urinalysis w/ reflexes EDMS 02/19 20:25 Order name: Basic Metabolic Panel EDMS 02/19 20:25 Order name: Basic Metabolic Panel EDMS 02/19 20:25 Order name: Basic Metabolic Panel EDMS 02/19 20:25 Order name: Basic Metabolic Panel EDMS 02/19 20:25 Order name: CBC with Automated Diff EDMS 02/19 20:25 Order name: CBC with Automated Diff EDMS 02/19 20:25 Order name: CBC with Automated Diff EDMS 02/19 20:25 Order name: CBC with Automated Diff EDMS 02/19 20:25 Order name: Magnesium EDMS 02/19 20:25 Order name: Magnesium EDMS 02/19 20:25 Order name: Magnesium EDMS 02/19 20:25 Order name: Magnesium EDMS 02/19 20:28 Order name: CBC with Automated Diff EDMS 02/19 20:28 Order name: Comprehensive Metabolic Panel EDMS 02/19 20:28 Order name: Magnesium EDMS 02/19 20:28 Order name: Protime (+INR) EDMS 02/19 17:20 Order name: Femur Right; Complete Time: 18:35 EDMS 02/19 18:39 Order name: Pelvis Wo Cont CT; Complete Time: 19:41 sb4 02/19 20:28 Order name: Chest Single View; Complete Time: 22:37 EDMS 02/19 20:22 Order name: 60g Consistent Carbohydrate (ADA 1800/2000) EDMS 02/19 20:22 Order name: NPO EDMS 02/19 20:25 Order name: CONS Physician Consult EDMS 02/19 20:25 Order name: EKG Electrocardiogram EDMS 02/19 20:31 Order name: CONS Physician Consult EDMS Administered Medications: 16:53 Drug: Hydrocodone-Acetaminophen PO (7.5 mg-325 mg) 1 tabs Route: PO; kc6 17:59 Follow up: Response: No adverse reaction; Pain is decreased; RASS: Alert and Calm (0) kc6 19:22 Drug: morphine IM 4 mg Route: IM; Site: right deltoid; lg3 21:16 Follow up: Response: No adverse reaction; Marked relief of symptoms lg3 19:22 Drug: Ondansetron PO 4 mg Route: PO; lg3 21:15 Follow up: Response: No adverse reaction lg3 Disposition Summary: 02/19/23 20:07 Hospitalization Ordered Hospitalization Status: Inpatient Admission sb4 Provider: Kal Keller Location: Telemetry/MedSurg (Inpatient) sb4 Condition: Fair sb4 Problem: new sb4 Symptoms: are unchanged sb4 Bed/Room Type: Standard sb4 Room Assignment: 224(02/19/23 21:02) mw Diagnosis - mildly comminuted and buckled right femoral head/neck junction fracture sb4 Forms: - Medication Reconciliation Form sb4 - SBAR form sb4 - Leadership Thank You Letter sb4 Addendum: 02/23/2023 00:03 Co-signature as Attending Physician, Min Coello MD I reviewed the patient's care r n provided by the Advanced Practice Provider and agree with the diagnosis and treatment plan. Signatures: Dispatcher [employer] EDMS Melinda Ford RN Min Geller MD MD rn Gibson, Lacie, RN ROSENDO lg3 Ladonna Carr RN RN kc6 Letitia Prado PA-C PACiera sb4 Madhavi Anton RN RN nj1 Corrections: (The following items were deleted from the chart) 02/19 17:05 16:39 Hip Left 2 View+RAD.RAD.BRZ ordered. EDMS EDMS 17:17 17:15 Hip Right 2 View+RAD.RAD.BRZ ordered. EDMS EDMS 17:17 17:15 Femur Right+RAD.RAD.BRZ ordered. EDMS EDMS 17:20 16:39 Femur Left+RAD.RAD.BRZ ordered. EDMS EDMS 21:02 20:07 sb4
--- NOTE | 2023-02-19 20:17 | P.HP ---
Certification for Inpatient Patient admitted to: Inpatient With expected LOS: <2 Midnights Patient will require the following post-hospital care: None Practitioner: I am a practitioner with admitting privileges, knowledge of patient current condition, hospital course, and medical plan of care. Services: Services provided to patient in accordance with Admission requirements found in Title 42 Section 412.3 of the Code of Federal Regulations Patient History Date of Service: 02/19/23 Reason for admission: hip fracture History of Present Illness: 87-year-old male with a past medical history of hypertension, diabetes, tobacco use, undiagnosed COPD presents to the emergency room with fall. He reports his right hip gave out on him while he was walking, reports right hip pain worse with range of motion. He denies fever, cough, chest pain, abdominal pain, nausea vomiting diarrhea. Right hip pain made better with as needed analgesics, rest. He reports history of 2 falls over the last 2 months. Uses a cane as baseline. He reports smoking 2 packs a day, no diagnosis of COPD, no use of home O2. Family reports history of diabetes and is on no diabetes medication. Plan to admit for right femoral head/neck junction fracture. Pelvis CT Mildly comminuted and buckled right femoral head/neck junction fracture.Small fracture fragment along the posterior margin of the acetabulum on the right Fusiform aneurysmal dilation of the distal abdominal aorta, with aneurysm sac measuring up to 5.3 cm. Crescentic hypodensity along the margins of the aneurysm sac could relate to a mural thrombus of indeterminate e age or sequelae of dissection, probably chronic. Preop EKG, chest x-ray, CBC, CMP, PT/INR ordered, cardiac clearance with Dr. Cutler consulted, Ortho Dr. Santoyo consulted. Allergies meperidine [From Demerol] Adverse Reaction (Verified 02/27/21 16:59) Nausea/Vomiting Home Medications: Amox/Clavulanate [Augmentin 500-125 mg Tab] 500 mg PO BID #14 tab 03/02/21 Azithromycin [Zithromax] 250 mg PO DAILY #3 tablet 03/02/21 Review of Systems 10-point ROS is otherwise unremarkable Physical Examination - Physical Exam General: Alert, In no apparent distress, Oriented x3 HEENT: Atraumatic, Normocephalic, PERRLA Neck: Supple, 2+ carotid pulse no bruit, JVD not distended Respiratory: Normal air movement, Crackles/rales, Other (Rhonchi, nonproductive cough) Cardiovascular: No edema, Normal pulses, Regular rate/rhythm Capillary refill: <2 Seconds Gastrointestinal: Normal bowel sounds, Soft and benign Musculoskeletal: Other (Right hip fracture, right lower extremely externally rotated) Integumentary: Other (Small abrasion on right finger, right knee, left elbow, cleaned with dry dressing) Neurological: Normal speech, Normal strength at 5/5 x4 extr, Normal tone, Sensation intact, Cranial nerves 3-12 intact Assessment and Plan - Plan Assessment plan right femoral head/neck junction fracture. Small fracture fragment along the posterior margin of the acetabulum Dr. Santoyo consulted, preop x-ray, preop labs, chest x-ray ordered As needed analgesics, antiemetics ordered abdominal aorta, with aneurysm sac measuring up to 5.3 cm. hypertension Cardiology consult, chest x-ray ordered, EKG Diabetes uncontrolled Accu-Cheks ACHS, sliding scale insulin level 1, Tobacco use 2 packs a day Educate on tobacco cessation O2 2 L keep sats greater than 92%, as needed [place] ordered Diet n.p.o. after midnight full code DVT rper Ortho Discharge Plan: Home Plan to discharge in: 48 Hours - Advance Directives Does patient have a Living Will: No Does patient have a Durable POA for Healthcare: No - Code Status/Comfort Care Code Status: Full Code Physician Review: Patient Assessed, Agree with Above Assessment and Plan Critical Care: No Time Spent Managing Pts Care (In Minutes): 50
[2023-02-19] MEDS ORDERED: ACETAMINOPHEN 500 MG TAB PO PRN (20:20)
[2023-02-19] MEDS ORDERED: ALPRAZOLAM 0.25 MG TABLET PO PRN (20:20)
[2023-02-19] MEDS ORDERED: ONDANSETRON 4 MG/2 ML VIAL IV PRN (20:20)
[2023-02-19] MEDS ORDERED: HYDROCODONE/APAP 7.5/325 MG TAB PO PRN (20:54)
[2023-02-19] MEDS ORDERED: ALBUTEROL 2.5 MG/3 ML NEB SOL NEB PRN (21:48)
[2023-02-19] MEDS: INSULIN -REGULAR HUMAN 50 UNIT/0.5 ML ML SQ SCH (21:48)
[2023-02-19] MEDS ORDERED: D50W 25 GM/50 ML SYRINGE IV PRN (21:48)
[2023-02-19] MEDS ORDERED: IPRATROPIUM BROM 0.5MG/2.5ML NEB PRN (21:48)
[2023-02-19] MEDS ORDERED: GLUCAGON 1 MG/VIAL IM PRN (21:48)
[2023-02-19] MEDS ORDERED: D10W 125 ML IV PRN (22:02)
--- NOTE | 2023-02-19 22:33 | RAD REPORT ---
[facility] CLINICAL HISTORY: PREOP. Hypertension COMPARISON: Chest Single View dated 02/28/2021; Chest Single View dated 02/27/2021; CHEST PA AND LAT 2 VIEW dated 09/07/2011; CHEST PA AND LAT 2 VIEW dated 03/09/2011 TECHNIQUE: Portable AP view of the chest. FINDINGS: The lungs are clear. Stable chronic interstitial changes. Left basilar airspace opacity ob served on the prior radiograph has since resolved. No pneumothorax or effusion. The cardiomediastinal contours are unremarkable. IMPRESSION: No acute cardiopulmonary process.
[2023-02-19 23:28] VITALS: BMI 22.6
[2023-02-19 23:30] LABS: Protime INR 1.11
[2023-02-19 23:35] LABS: Absolute Lymphocytes (CBC) 1.5 K/uL (0.7-4.9); Hematocrit 46.8 % (39.6-49.0); Lymphocytes % 17.4 % (15.3-44.8); MCV 92.1 fL (80-100); MPV 8.4 fL (7.6-11.3); Platelets 116 thou/uL (152-406); RBC Red Blood Cell Count 5.09 M/uL (4.33-5.43)
[2023-02-19 23:46] LABS: Albumin 3.4 g/dL (3.4-5.0); Bilirubin Total 0.9 mg/dL (0.2-1.0); Magnesium 1.8 mg/dL (1.6-2.4); Potassium 4.4 mEq/L (3.5-5.1); Protein, Total 7.2 g/dL (6.4-8.2)
[2023-02-20 03:57] LABS: Absolute Lymphocytes (CBC) 1.5 K/uL (0.7-4.9); Hematocrit 47.7 % (39.6-49.0); Lymphocytes % 18.7 % (15.3-44.8); MCV 92.4 fL (80-100); MPV 9.1 fL (7.6-11.3); Platelets 111 thou/uL (152-406); RBC Red Blood Cell Count 5.16 M/uL (4.33-5.43)
[2023-02-20 04:02] LABS: Magnesium 2.2 mg/dL (1.6-2.4); Potassium 4.2 mEq/L (3.5-5.1)
[2023-02-20] MEDS: MORPHINE 4 MG/ML SYR IV PRN ×4 (05:35→23:50)
[2023-02-20] MEDS: INSULIN -REGULAR HUMAN 50 UNIT/0.5 ML ML SQ SCH ×4 (07:30→21:38)
--- NOTE | 2023-02-20 17:05 | EKG ---
Test Date: 2023-02-20 Test Time: 06:07:21 Pet Counselor: ARIELG MEASUREMENT RESULTS: Intervals: Rate: 70 SD: 158 QRSD: 116 QT: 436 QTc: 470 Ayr: P: 69 SD: 158 QRS: -74 T: 70 INTERPRETIVE STATEMENTS: Normal sinus rhythm Left axis deviation Incomplete left bundle branch block Nonspecific ST and T wave abnormality Prolonged QT Abnormal ECG Compared to ECG 02/20/2023 06:06:35 Left bundle-branch block now present ST (T wave) deviation now present Prolonged QT interval now present Ventricular premature complex(es) no longer present Myocardial infarct finding no longer present Electronically Signed On 02-20-23 17:04:30 CDT by Wilber Lozada
--- NOTE | 2023-02-20 17:05 | EKG ---
Test Date: 2023-02-20 Test Time: 06:06:35 Honing Machine Operator Production: ARIELG MEASUREMENT RESULTS: Intervals: Rate: 70 MI: 156 QRSD: 118 QT: 434 QTc: 468 [place]: P: 65 MI: 156 QRS: -73 T: 94 INTERPRETIVE STATEMENTS: Sinus rhythm with occasional premature ventricular complexes Left axis deviation Septal infarct, age undetermined Abnormal ECG Compared to ECG 02/27/2021 10:31:25 Ventricular premature complex(es) now present Left-axis deviation now present Left anterior fascicular block no longer present Prolonged QT interval no longer present Myocardial infarct finding still present Electronically Signed On 02-20-23 17:04:33 CDT by Wilber Lozada
--- NOTE | 2023-02-20 20:26 | P.PN ---
Subjective Date of Service: 02/20/23 Chief Complaint: hip fracture No acute events since admission. He reports right hip pain, which is well- controlled at rest. He denies any chest pain, palpitations, or shortness of breath. Review of Systems 10-point ROS is otherwise unremarkable Musculoskeletal: Leg Pain (right hip) Physical Examination - Vital Signs Temperature: 99.2 F Blood Pressure: 110/58 Pulse: 80 Respirations: 17 Pulse Ox (%): 95 - Physical Exam General: Alert, In no apparent distress, Oriented x3 HEENT: Atraumatic, Mucous membr. moist/pink, Sclerae nonicteric Neck: JVD not distended Respiratory: Clear to auscultation bilaterally, Normal air movement Cardiovascular: No edema, Regular rate/rhythm, Normal S1 S2, No gallops, No rubs, No murmurs Gastrointestinal: Normal bowel sounds, Soft and benign, Non-distended, No tenderness, No rebound, No guarding Musculoskeletal: No clubbing, Other (right hip pain) Integumentary: No rashes Neurological: Normal speech, Normal affect Assessment And Plan - Plan # Traumatic Ground-Level Fall complicated by Right Mildly Comminuted/Buckled Right Femoral Head/Neck Junction and Right Posterior Acetabulum Fractures - Evaluation thus far: - Right hip x-ray = "mildly buckled fracture at the femoral head/neck junction." - CT pelvis = "mildly comminuted and buckled right femoral head/neck junction fracture. Small fracture fragment along the posterior margin of the acetabulum on the right. 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 Crescentic hypodensity along the margins of the aneurysm sac could relate to a mural thrombus of indeterminate age or sequelae of dissection, probably chronic. Evaluation is limited on this noncontrast exam." - Management plan: - Orthopedic Surgery consulted - recommendations appreciated - PRN pain medication - NPO past midnight # Type II Diabetes Mellitus # Hypertension - Reconcile home medications once verified # Tobacco Use Disorder - Nicotine patch - Substance cessation counseling # Abdominal Aortic Aneurysm (5.3 cm) with Possible Mural Thrombus - Noted on CT pelvis - Consulted Cardiology - recommendations appreciated Humberto Wolff M.D.
--- NOTE | 2023-02-20 21:14 | CON ---
Date of Consultation: 02/20/2023 Reason For Consultation: Preop assessment for hip fracture surgery. History Of Present Illness: An 87-year-old male, history of diabetes, hypertension, smoker, COPD, pr esented emergency room after a trip and fall and sustained hip fracture. I was asked to evaluate car diac risk prior to the surgery. The patient apparently has no cardiac history. He is not very activ e given his age, but he does not have any active chest pain or shortness of breath. Past Medical History: As outlined above in the HPI. Medications: Refer to reconciliation sheet for detailed list. Allergies: NO KNOWN DRUG ALLERGIES. Family History: No premature coronary artery disease or disease. Social History: He is a smoker. Does not drink or use any drugs. Review of Systems: All systems reviewed and they were negative except what mentioned in HPI. Physical Examination: Vital Signs: Reviewed. Head and Neck: Pupils are equal, reactive to light. Intact eye movements. No JVD. No cervical lym phadenopathy. Neck is supple. Thyroid is not enlarged. Lungs: Clear to auscultation bilaterally. No rhonchi, wheezing, or crackles. No accessory muscle u se. Heart: Regular rate and rhythm. No extra sounds. Abdomen: Soft, nontender. Bowel sounds positive. No organomegaly. No masses or hernia. No rigidi ty or rebound. Extremities: No clubbing or cyanosis. Intact pulses. Skin: No rash. Neurologic: Alert, awake, oriented x3. No acute focal deficits appreciated. Investigations: CT scan of the pelvis showed a distal abdominal aortic aneurysm 5.3 cm in largest di ameter. His BUN is 28, creatinine 1.3, hemoglobin is 16.4. Assessment And Recommendations: 1.Cardiac preoperative risk assessment. This patient is 87 with a large abdominal aortic aneurysm. He is a smoker. He is definitely at least moderate cardiac risk for any surgery, but due to the marcela ure of the surgery being emergent, I recommend to proceed after obtaining an echo and we will follow up on this patient in case of any complication happens. At this point, any cardiac workup could gabo y this surgery, which is rather urgent to proceed as scheduled tomorrow. 2.Distal abdominal aorta aneurysm 5.3 cm, this needs repair. We will plan on that as an outpatient basis, in the interim make sure his blood pressure and heart rate are controlled. SR/MODL Voice ID: [id number] Report ID: [id number]
[2023-02-21 03:18] LABS: Absolute Lymphocytes (CBC) 1.7 K/uL (0.7-4.9); Hematocrit 46.1 % (39.6-49.0); Lymphocytes % 17.1 % (15.3-44.8); MCV 92.5 fL (80-100); MPV 9.2 fL (7.6-11.3); Platelets 113 thou/uL (152-406); RBC Red Blood Cell Count 4.99 M/uL (4.33-5.43)
--- NOTE | 2023-02-21 03:20 | CON ---
Date of Consultation: 02/20/2023 This is my first time seeing this patient to my knowledge. He is an 87-year-old male who unfortunate ly fell injuring his right lower extremity. He was seen and examined in the emergency department whe re he was ruled out for other injuries, however, x-ray and CAT scan demonstrated a slightly comminute d, minimally displaced fracture in the basicervical region. Also seen on the CT scan was an aneurysm , which I do not treat, but will be apparently followed by Cardiology. On seeing him today, all of h is long bones and joints are palpated without pain or crepitation with the exception of his right hip , which is painful to any movement. His family is in the room with him, and I spoke with him, althmarquita gh he had had some pain medicine regarding his diagnosis and treatment options. Treatment options in clude possibility of pinning or bipolar hemiarthroplasty. After reviewing this, the family agrees th at bipolar hemiarthroplasty is probably the best course of action. We will not do this today as he h as not yet been seen by Cardiology and would need clearance, especially with regard to the aneurysm. However, we will schedule him for tomorrow for right bipolar hemiarthroplasty and all of his questio ns as well as of his family have otherwise been invited and answered. MARCE Voice ID: [id number] Report ID: [id number]
[2023-02-21] MEDS: MORPHINE 4 MG/ML SYR IV PRN ×2 (04:41→11:10)
[2023-02-21] MEDS: INSULIN -REGULAR HUMAN 50 UNIT/0.5 ML ML SQ SCH ×4 (07:30→21:00)
[2023-02-21] MEDS: ENSURE SURGERY 237 ML CAN PO SCH ×2 (11:00→21:00)
[2023-02-21 11:58] VITALS: O2SAT 96
[2023-02-21] MEDS ORDERED: MORPHINE 2 MG/ML SYR IV PRN (12:40)
--- NOTE | 2023-02-21 21:43 | P.DS ---
Admission Date: 02/19/23 Discharge Date: 02/21/23 Disposition: TRANSFER TO [facility] Comment: [facility] Reason for Admission: hip fracture Consultations: Ortho Cardiology Procedures: 02/19/2023 femur x-ray FINDINGS: Mildly buckled fracture at the femoral head/ neck junction. Mild hip joint degenerative changes. Well corticated osseous fragment at the ischial tuberosity is probably chronic, may relate to sequelae of enthesopathy the hamstring origins. There is no dislocation or periosteal reaction noted. Vascular calcifications. IMPRESSION: Mildly buckled fracture at the femoral head/neck junction. 02/19/[address] FINDINGS: Mildly comminuted fracture of the right femoral head/neck junction with buckling across the posterior cortex. Small linear fracture fragment along the posterior margin of the acetabulum on the right. Periarticular soft tissue swelling and small joint effusion. Evaluation of the pelvic structures reveals prostatomegaly and a calcified ovoid 1.3 cm lesion adjacent to the rectal adventitia on the left, which may represent a small omental or extra mental fat infarct. 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 Crescentic hypodensity along the margins of the aneurysm sac most prominent anteriorly, could relate to presence of mural thrombus of indeterminate age or sequelae of dissection, pro bably chronic. No dilated bowel loops or visualized bowel wall thickening. No free air, free fluid or inflammatory stranding. No hernia, mass or bulky lymphadenopathy. The urinary bladder is without significant finding. Multilevel degenerative changes of the lower lumbar spine IMPRESSION: Mildly comminuted and buckled right femoral head/neck junction fracture. Small fracture fragment along the posterior margin of the acetabulum on the right. 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 Crescentic hypodensity along the margins of the aneurysm sac could relate to a mural thrombus of indeterminate age or sequelae of dissection, probably chronic. Evaluation is limited on this noncontrast exam. Chest x-ray 02/19/2023 FINDINGS: The lungs are clear. Stable chronic interstitial changes. Left basilar airspace opacity observed on the prior radiograph has since resolved. No pneumothorax or effusion. The cardiomediastinal contours are unremarkable. IMPRESSION: No acute cardiopulmonary process. Brief History of Present Illness: H&P 87-year-old male with a past medical history of hypertension, diabetes, tobacco use, undiagnosed COPD presents to the emergency room with fall. He reports his right hip gave out on him while he was walking, reports right hip pain worse with range of motion. He denies fever, cough, chest pain, abdominal pain, nausea vomiting diarrhea. Right hip pain made better with as needed analgesics, rest. He reports history of 2 falls over the last 2 months. Uses a cane as baseline. He reports smoking 2 packs a day, no diagnosis of COPD, no use of home O2. Family reports history of diabetes and is on no diabetes medication. Plan to admit for right femoral head/neck junction fracture. Pelvis CT Mildly comminuted and buckled right femoral head/neck junction fracture.Small fracture fragment along the posterior margin of the acetabulum on the right Fusiform aneurysmal dilation of the distal abdominal aorta, with aneurysm sac measuring up to 5.3 cm. Crescentic hypodensity along the margins of the aneurysm sac could relate to a mural thrombus of indeterminate e age or sequelae of dissection, probably chronic. Preop EKG, chest x-ray, CBC, CMP, PT/INR ordered, cardiac clearance with Dr. Cutler consulted, Ortho Dr. Santoyo consulted. Hospital Course: Patient was admitted for right femoral head/neck and right posterior acetabulum fractures, during his admission he was noted to have a fusiform aneurysmal dilation of the distal abdominal aorta with aneurysm sac measuring up to 5.3 cm. Crescentic hypodensity along the margins of the aneurysm sac could relate to mural thrombus of indeterminate age or sequela of dissection, probably chronic. Evaluation limited on this noncontrast exam. Orthopedics and cardiology were consulted, family preferred transfer to a center with vascular services in the case of complications during surgery. Transfer was initiated to [facility], [facility]. This evening [facility] excepted the patient for transfer. Accepting physician is . Doc to Doc was performed by attending physician during the day shift. Vital Signs/Physical Exam: Temp Pulse Resp BP Pulse Ox 99.2 F 77 16 110/58 L 95 02/21/23 16:00 02/21/23 16:00 02/21/23 16:00 02/21/23 16:00 02/21/23 16:00 General: Alert, Oriented x3 HEENT: Atraumatic Neck: Supple Respiratory: Normal air movement Cardiovascular: No edema Gastrointestinal: Non-distended Laboratory Data at Discharge: WBC 9.80 thou/uL (4.3-10.9) 02/21/23 02:42 Hgb 15.6 g/dL (13.6-17.9) 02/21/23 02:42 Hct 46.1 % (39.6-49.0) 02/21/23 02:42 Plt Count 113 thou/uL (152-406) L 02/21/23 02:42 PT 12.2 SECONDS (9.5-12.5) 02/19/23 23:15 INR 1.11 02/19/23 23:15 Sodium 135 mEq/L (136-145) L 02/21/23 02:42 Potassium 5.0 mEq/L (3.5-5.1) D 02/21/23 02:42 BUN 27 mg/dL (7-18) H 02/21/23 02:42 Creatinine 1.30 mg/dL (0.70-1.30) 02/21/23 02:42 Glucose 131 mg/dL (74-106) H 02/21/23 02:42 Magnesium 2.0 mg/dL (1.6-2.4) 02/21/23 02:42 Total Bilirubin 0.9 mg/dL (0.2-1.0) 02/19/23 23:15 AST 19 U/L (15-37) 02/19/23 23:15 ALT 14 U/L (16-61) L 02/19/23 23:15 Alkaline Phosphatase 65 U/L (45-117) 02/19/23 23:15 Home Medications: Lisinopril [Zestril] 20 mg PO DAILY 02/19/23 Followup: Cedric Flowers MD [Primary Care Provider] - Time spent managing pt's care (in minutes): 30
[2023-02-21 22:57] VITALS: BP 130/67; TEMP 97.2
--- NOTE | 2023-02-22 08:35 | ECHO ---
HEIGHT: 5 ft 10 in WEIGHT: 158 lb 0 oz DATE OF STUDY: 02/21/[address]: Juan Rodrigez III, MD 2-DIMENSIONAL: YES M.MODE: YES DOPPLER: YES COLOR FLOW: YES TDS: PORTABLE: YES DEFINITY: BUBBLE STUDY: DIAGNOSIS: CARDIAC CLEARANCE CARDIAC HISTORY: CATHERIZATION: NO SURGERY: NO PROSTHETIC VALVE: NO PACEMAKER: NO MEASUREMENTS (cm) DIASTOLIC (NORMALS) SYSTOLIC (NORMALS) IVSd 1.2 (0.6-1.2) LA Diam 2.3 (1.9-4.0) LVEF 40-45% LVIDd 4.0 (3.5-5.7) LVIDs 3.4 (2.0-3.5) %FS 15% LVPWd 1.3 (0.6-1.2) Ao Diam 2.1 (2.0-3.7) 2 DIMENSIONAL ASSESSMENT: RIGHT ATRIUM: NORMAL LEFT ATRIUM: NORMAL RIGHT VENTRICLE: NORMAL LEFT VENTRICLE: NORMAL TRICUSPID VALVE: MILD TRICUSPID REGURGITAITON MITRAL VALVE: MILD MITRAL REGURGITATION PULMONIC VALVE: NORMAL AORTIC VALVE: NORMAL PERICARDIAL EFFUSION: NONE AORTIC ROOT: NORMAL LEFT VENTRICULAR WALL MOTION: MILD GLOBAL HYPOKINESIS DOPPLER/COLOR FLOW: SEE BELOW COMMENTS: 1. MILDLY DEPRESSED LEFT VENTRICULAR EJECTION FRACTION 40-45% 2. MILD GLOBAL HYPOKINESIS 3. 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 MILD MITRAL REGURGITATION 5. MILD TRICUSPID REGURGITATION TECHNOLOGIST: MICHAEL VILLALOBOS
== END 2023-02-21 23:05 | disposition short-term general hospital (02) | DRG 965 ==
LOC: ER 16:15 → ERHOLD 20:18 → 2ND 21:20
PROVIDERS: ADMIT Hospitalist; ATTEND Internal Medicine
DX: S72.001A Fracture of unspecified part of neck of right femur, initial encounter for closed fracture (principal); S32.401A Unspecified fracture of right acetabulum, initial encounter for closed fracture; I10 Essential (primary) hypertension; E11.9 Type 2 diabetes mellitus without complications; J44.9 Chronic obstructive pulmonary disease, unspecified; I71.40 Abdominal aortic aneurysm, without rupture, unspecified; F17.210 Nicotine dependence, cigarettes, uncomplicated; Z88.5 Allergy status to narcotic agent; W18.30XA Fall on same level, unspecified, initial encounter; Y92.481 Parking lot as the place of occurrence of the external cause; Y93.9 Activity, unspecified; Y99.9 Unspecified external cause status
CPT/HCPCS: 36415; 71045; 72192; 80048; 80053; 82947; 83735; 85025; 85610; 93005; 93306; 96372; 99285; J1815; J2270; Q0162